=== PATIENT | male | born 1980 | race Two or more races ===

== ENCOUNTER 2016-10-16 03:28 | Emergency (ER) | payer OTHER ==
[~2016-10-16] VITALS: Ht 177.8 cm; Wt 95.3 kg
[2016-10-16 04:33] LABS: Basophils # (auto) 0.1 uL; Basophils % (auto) 0.6 % (0.0-2.0); CONDITION Y; Eosinophils # (auto) 0.2 uL; Eosinophils % (auto) 1.4 % (0.0-7.0); Hematocrit 40.4 % (41.0-53.0); Hemoglobin 13.6 g/dL (13.5-17.5); Lymphocytes # (auto) 1.9 uL; Lymphocytes % (auto) 16.3 % (10.0-50.0); Mean Corpuscular Hemoglobin 28.2 pg (28.0-32.0); Mean Corpuscular Hgb Conc. 33.5 g/dL (32.0-36.0); Mean Corpuscular Volume 84.1 fL (80.0-100.0); Mean Platelet Volume 9.3 fL (7.4-10.4); Monocytes # (auto) 0.6 uL; Monocytes % (auto) 5.5 % (0.0-12.0); Neutrophils # (auto) 8.7 uL; Neutrophils % (auto) 76.2 % (37.0-80.0); Platelet Count (auto) 239 10^3/uL (140-450); Red Cell Distribution Width 13.9 % (11.6-16.0); White Blood Cell 11.4 10^3/uL (4.4-10.8)
[2016-10-16 04:50] LABS: Albumin 3.7 g/dL (3.4-5.0); Anion Gap 9 (5-15); Aspartate Aminotransferase 36 U/L (15-37); BUN/Creatinine Ratio 17.5; Blood Urea Nitrogen 14 mg/dL (7-18); Calcium 8.5 mg/dL (8.5-10.1); Carbon Dioxide 25 mmol/L (21-32); Chloride 108 mmol/L (98-107); GFR African American 139 mL/min; GFR Non-African American 115 mL/min; Glucose 130 mg/dL (74-106); Potassium 3.8 mmol/L (3.5-5.1); Sodium 142 mmol/L (136-145)
[2016-10-16 04:55] LABS: Alkaline Phosphatase 69 U/L (45-117); Bilirubin, Total 0.7 mg/dL (0.2-1.0); Total Protein 7.4 g/dL (6.4-8.2)
[2016-10-16] MEDS ORDERED: HYDROcodone-ACET 5/325MG TAB PO ONE (06:00)
[2016-10-16] MEDS ORDERED: ASPirin-EC 81 mg tab PO ONE (06:00)
[2016-10-16 07:33] LABS: Urine Bilirubin Negative (Negative); Urine Blood Negative /uL (Negative); Urine Color Yellow (Yellow); Urine Glucose Normal (Normal); Urine Ketone Negative (Negative); Urine Nitrite Negative (Negative); Urine RBC <1 /hpf (0 - 3); Urine Urobilinogen Normal (Negative)
[2016-10-16] MEDS ORDERED: METOCLOPRAMIDE HCL 5MG/ml INJ 2ml VIAL IV ONE (09:00)
[2016-10-16] MEDS ORDERED: KETOROLAC TROMETH 30 MG/ML 1ML VIAL IV ONE (09:00)
[2016-10-16 09:19] VITALS: BP 140/100
== END 2016-10-16 10:23 | disposition home or self-care (01) ==
LOC: ER 03:31
DX: R07.89 Other chest pain (principal); R73.9 Hyperglycemia, unspecified; M54.12 Radiculopathy, cervical region; M25.512 Pain in left shoulder
CPT/HCPCS: 36415; 71010; 80053; 81001; 84484; 85025; 93005; 94761; 96374; 96375; 99285; J1885; J2765